=== PATIENT | male | born 2000 | race Caucasian/White ===

== ENCOUNTER 2022-06-24 09:05 | Outpatient (REF) | payer BC, SELFPAY ==
[2022-06-24 12:06] LABS: Appearance Urine Turbid; Color Urine Yellow; Glucose Urine UA Negative (Negative); Leukocyte Esterase Urine Negative (Negative); Nitrite Urine Negative (Negative); PH 5.5 (5.0-9.0); Specific Gravity - Urine 1.025 (1.005-1.025); Urine Blood Negative (Negative); Urine Ketones Trace mg/dL (Negative); Urine Protein Negative (Neg-Trace)
[2022-06-24 13:27] LABS: CT PCR NOT DETECTED (Not Detect.); NG PCR NOT DETECTED (Not Detect.)
[2022-06-24 14:16] LABS: Alanine Aminotransferase 29 U/L (0-40); Albumin Level 4.5 g/dL (3.5-5.0); Alkaline Phosphatase 79 U/L (39-117); Anion Gap 10 (12-20); Aspartate Amino Transferase 26 U/L (5-37); Bilirubin Total 1.1 mg/dL (0.0-1.0); Blood Urea Nitrogen 10 mg/dL (9-16); Calcium 9.6 mg/dL (8.4-10.2); Carbon Dioxide 28 mmol/L (22-29); Chloride 106 mmol/L (96-108); Cholesterol 167 mg/dL; Estimated Glomerular Filt Rate > 60; Glucose Fasting 89 mg/dL (60-99); HDL Cholesterol 44 mg/dL; LDL Cholesterol Calculated 103 mg/dl; Potassium 3.3 mmol/L (3.3-5.1); Sodium 141 mmol/L (135-145); Total Protein 6.9 g/dL (6.5-8.0); Triglycerides 101 mg/dL
[2022-06-25 04:51] LABS: Syphilis Screen Nonreactive (Nonreactive)
[2022-06-25 05:25] LABS: HBS Num1 0.66 mIU/mL (0-7.99); HBc Num1 0.13 S/CO (0.00-0.79); HIV AB/AG Nonreactive (Nonreactive); HIV Num 1 0.07 S/CO (0.00-0.99); Hepatitis B Core Antibody Nonreactive (Nonreactive); Hepatitis B Surface Antigen Negative (Negative); ~HepC Num1 0.13 S/CO (0.00-0.79); ~Hepatitis B Surface Antibody NONREACTIVE (Nonreactive); ~Hepatitis C Antibody Nonreactive (Nonreactive)
== END 2022-06-24 09:06 | disposition home or self-care (01) ==
LOC: HO.WFDLDS 09:05
PROVIDERS: Visit Provider Family Medicine
DX: Z00.00 Encounter for general adult medical examination without abnormal findings (principal); Z11.4 Encounter for screening for human immunodeficiency virus [HIV]; Z11.3 Encounter for screening for infections with a predominantly sexual mode of transmission
CPT/HCPCS: 0353U; 80053; 80061; 81003; 84443; 86704; 86706; 86780; 86803; 87340; 87389

== ENCOUNTER 2023-01-02 14:19 | Outpatient (AMB) | payer BC, SELFPAY ==
[2023-01-02 14:25] VITALS: BP 124/68; PULSE 85; RESP 12; TEMP 37; O2SAT 99; BMI 26.3
--- NOTE | 2023-01-02 14:25 | A.OFFPC_ITS ---
Vital Signs 01/02/23 14:25 Height 5 ft 11 in Weight 188 lb 6 oz BMI 26.3 BP 124/68 Blood Pressure Location Lt brachial Position Sitting Respiration 12 Pulse 85 Pulse Source Pulse Oximeter Temp 98.6 F Temp Source Temporal Artery Scan Pulse Oximetry (%) 99 Oxygen Delivery Method Room Air Intake Visit Reasons: Referral (Hearing Loss/Ringing) Intake Note: Patient states that it happened about a month ago and went away within a week. Patient states that it was the third time that has happened. Patient states that is happening only in the right. Patient states thats the ringing and hearing loss gets longer each time it happens. Patient states that the pain is mild. Vacuum Plastic Forming Machine Operator Required: No Accompanied by: Self / Same As Patient Allergies No Known Allergies Allergy (Verified 01/02/23 14:30) Tobacco use date assessed: 07/10/22 Dental Screening Dental Screen Date: 01/02/23 Did you have a dental visit in the last 12 months?: Yes Did you have a dental problem in the last 6 months where you did not have access to dental care?: No Was dental information given to patient?: Patient has dentist HPI Referral (Hearing Loss/Ringing) HPI Details 22 y/o male presents today with complaints of R ear hearing loss/tinnitus. He reports symptoms x1 month. Symptoms have abated but been recurrent. 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 Keshawn Rangel, Denise Mendes, Bartolome Yoon and colleagues, with an educational thuan from [employer]. Physical exam (Primary Care) Vital Signs: Last Vital Signs Temp 98.6 F 01/02/23 14:25 Pulse 85 01/02/23 14:25 Resp 12 01/02/23 14:25 BP 124/68 01/02/23 14:25 Pulse Ox 99 01/02/23 14:25 Oxygen Delivery Method Room Air 01/02/23 14:25 BMI result Body Mass Index 26.3 Tobacco/Smoking Status: Tobacco use Status Tobacco use date assessed 07/10/22 01/02/23 14:32 Patient Tobacco Use Status Never used Tobacco 01/02/23 14:32 e-Cigarette/Vaping Use Never Used 01/02/23 14:32 Thrive Assessment: Date of Thrive Assessment Date Thrive assessed 06/19/22 01/02/23 14:32 HENMT Other: TMs normal bilaterally Hearing grossly intact bilaterally Assessment and Plan Assessment & Plan (1) Hearing loss: Code(s): H91.90 - Unspecified hearing loss, unspecified ear Plan: Hearing changes and tinnitus. Symptoms have abated but have been recurrent TM appears normal today Referred to audiology Referred to ENT (2) Tinnitus: Code(s): H93.19 - Tinnitus, unspecified ear Plan: As above Orders: Referrals Audiology Referral H91.90 - Unspecified hearing loss, unspecified ear, H93.19 - Tinnitus, unspecified ear Ear/Nose/Throat Referral H91.90 - Unspecified hearing loss, unspecified ear, H93.19 - Tinnitus, unspecified ear Coding Level of Care Code Est Pt Level 3 (58054) Diagnoses Hearing loss H91.90 Tinnitus H93.19
== END 2023-01-02 15:03 | disposition home or self-care (01) ==
PROVIDERS: PCP Family Medicine; Visit Provider Family Medicine
DX: H91.90 Unspecified hearing loss, unspecified ear (principal); H93.19 Tinnitus, unspecified ear
CPT/HCPCS: 99213

== ENCOUNTER 2023-08-24 15:23 | Outpatient (AMB) | payer BC, SELFPAY ==
--- NOTE | 2023-08-24 15:26 | A.OFFPC_ITS ---
Vital Signs 08/24/23 15:28 Height 5 ft 11 in Weight 189 lb BMI 26.4 BP 110/62 Blood Pressure Location Lt brachial Position Sitting Respiration 12 Pulse 90 Pulse Source Pulse Oximeter Pulse Oximetry (%) 99 Oxygen Delivery Method Room Air Intake Visit Reasons: Physical Exam Intake Note: Patient reports he is here for a physical. Patient states he was seen by the eye doctor and he has glasses coming. Patient reports he has an astigmatism and is near sighted. Blocking Machine Operator Required: No Accompanied by: Self / Same As Patient Allergies No Known Allergies Allergy (Verified 08/24/23 15:34) Tobacco use date assessed: 07/10/22 [facility] Medical History Depression with anxiety Surgical History No pertinent past surgical history Family History Mother Depression Father Depression Other Mental health disorder Social History Household Members: Spouse and None Both parents involved: Yes Caregiver staying overnight: No Housing: Apartment Are you a primary director of healthcare systems to a significant other at home: No Do you presently have visiting nurse or other home services: No 75 years or older and lives alone: No Alcohol intake: current Alcohol intake frequency: holidays/special occasions only Alcohol type: beer Patient Tobacco Use Status: Never used Tobacco e-Cigarette/Vaping Use: Never Used Use of substances other than those prescribed or required for medical reasons: No Have you been hit, kicked, punched, or otherwise hurt by someone within the past year? 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 1. Little interest or pleasure in doing things: not at all 2. Feeling down, depressed, or hopeless: not at all 3. Trouble falling or staying asleep, or sleeping too much: not at all 4. Feeling tired or having little energy: not at all 5. Poor appetite or overeating: not at all 6. Feeling bad about yourself - or that you are a failure or have let yourself or your family down: not at all 7. Trouble concentrating on things, such as reading the newspaper or watching television: not at all 8. Moving or speaking so slowly that other people could have noticed. Or the opposite - being so fidgety or restless that you have been moving around a lot more than usual: not at all 9. Thoughts that you would be better off or of hurting yourself in some way: not at all Total score: 0 Depression Screening Interpretation: Negative Depression Screening Done: Yes 10760 - PHQ-9 Billing: Yes Source: Developed by Drs. Keshawn Rangel, Denise Mendes, Bartolome Yoon and colleagues, with an educational thuan from [employer]. Thrive Questionnaire Date Thrive assessed: 08/24/23 I am a: Patient What is your living situation today?: I have a steady place to live Within the past 12 months, did the food you bought not last and you didn't have the money to get more?: Never true Within the past 12 months, did you worry whether your food would run out before you got money to buy more?: Never true Do you have trouble paying for medicines?: No Do you have trouble getting transportation to medical appointments?: No Do you have trouble paying your heating and electricity bill?: No Do you have trouble taking care of your child, family member or friend?: No Do you have trouble with day-to-day activities such as bathing, preparing meals, shopping, managing finances, etc.?: No Are you currently unemployed and looking for a job?: No Are you interested in more education?: No Please select the resources that you would like help with: None Currently or been in a relationship where the following occur: no concerns reported THRIVE Score: 0 AUDIT C Alcohol Use Questionnaire (AUDIT-C) 1. How often do you have a drink containing alcohol?: Monthly or less 2. How many drinks containing alcohol do you have on a typical day when you are drinking?: 1 or 2 Total Score: 1 LENO-7 AMB Questionnaire LENO-7 Date LENO - 7 assessed: 08/24/23 Feeling nervous, anxious, or on edge: 0 = Not at all Not being able to stop or control worryin = Not at all Worrying too much about different things: 0 = Not at all Trouble relaxin = Not at all Being so restless that it is hard to sit still: 0 = Not at all Becoming easily annoyed or irritable: 0 = Not at all Feeling afraid as if something awful might happen: 0 = Not at all Total LENO-7 score (0-4 normal; 5-9 mild; 10-14 moderate; 15-21 severe): 0 Source: Developed by Drs. Keshawn Rangel, Denise Mendes, Bartolome Yoon and colleagues, with an educational thuan from [employer]. LENO-7 Assessment Billing LENO-7 Assessment Tool: LENO-7 Assessment 09207 Review of Systems Const Denies chills, Denies fatigue, Denies fever(s), Denies headache(s) and Denies weakness Eyes Denies change in vision ENT Denies dizziness, Denies headache(s), Denies hearing loss, Denies nasal congestion, Denies sinus pain, Denies sinus pressure and Denies sore throat Card Denies chest pain, Denies lightheadedness, Denies dyspnea and Denies other (palpitations) Resp Denies cough, Denies dyspnea and Denies wheezing GI Denies abdominal pain, Denies melena, Denies hematochezia, Denies change in bowel habits, Denies dyspepsia and Denies nausea Denies hematuria and Denies dysuria Musc Denies abnormal gait, Denies myalgias, Denies arthralgias, Denies numbness and Denies tingling Skin/Breast Denies rash, Denies unusual bruising and Denies wounds Neuro Denies abnormal gait, Denies dizziness, Denies headache(s), Denies memory loss, Denies numbness, Denies Sensory deficit (Neuro), Denies tingling and Denies weakness Psych Denies anxiety, Denies depression and Denies memory loss Endo Denies cold intolerance, Denies fatigue, Denies heat intolerance, Denies polydipsia and Denies polyuria Edin/Lymph Denies easy bleeding and Denies easy bruising Aller/Immun Denies wheezing Physical exam (Primary Care) Vital Signs: Last Vital Signs Pulse 90 08/24/23 15:28 Resp 12 08/24/23 15:28 BP 110/62 08/24/23 15:28 Pulse Ox 99 08/24/23 15:28 Oxygen Delivery Method Room Air 08/24/23 15:28 BMI result Body Mass Index 26.4 Tobacco/Smoking Status: Tobacco use Status Tobacco use date assessed 07/10/22 08/24/23 15:26 Patient Tobacco Use Status Never used Tobacco 08/24/23 15:36 e-Cigarette/Vaping Use Never Used 08/24/23 15:36 PHQ-9: PHQ-9 Score PHQ-9: Total score 0 08/24/23 16:09 Depression Screening Interpretation: Negative Thrive Assessment: Date of Thrive Assessment Date Thrive assessed 08/24/23 08/24/23 15:37 Currently or been in a relationship where the following occur: no concerns repo rted Const General: no acute distress, well developed, alert and awake Nutritional Appearance: well nourished Orientation/consciousness: patient oriented x3 HENMT Head: Yes normocephalic and Yes atraumatic Ears: hearing grossly normal bilaterally and TM's normal bilaterally General nose exam: Normal external nose present and Normal nares present Mouth: Normal oral and palatal mucosa present and moist mucous membranes Teeth and gingiva: dentition normal Throat: Yes posterior oropharynx normal Eyes General: appearance normal, both eyes and all related structures Pupils: Equal, round and reactive pupils present and Pupil accommodation reflex normal EOM: EOMs intact bilaterally Neck Neck: Yes normal visual inspection, Yes no lymphadenopathy and Yes trachea midline Thyroid: Thyroid normal Carotids: no bruits Lymphatic: no lymphadenopathy noted Chest Chest palpation & inspection: normal inspection of the chest Resp Effort & Inspection: normal respiratory effort Auscultation: clear to auscultation bilaterally Cardio Rate: regular rate Rhythm: regular rhythm Heart sounds: S1 normal heart sound present, S2 normal heart sound present, no gallops, no murmurs and no rubs Bruits: no abdominal aortic bruits and no carotid bruits GI Palpation (GI): No Abdominal aortic bruit present, Soft to palpation, nontender, No hepatosplenomegaly present and No Rebound tenderness present Auscultation: normal bowel sounds General: Yes no CVA tenderness Back/Spine/Pelvis Back: no CVA tenderness Cervical Spine: cervical ROM normal and No Cervical spine tenderness Thoracic/Lumbar Spine: thoraco-lumbar ROM normal, No pain with thoraco-lumbar ROM, No thoracic spinal tenderness and No lumbar spinal tenderness Skin Lesions: no lesions Rashes: no rashes Trauma: no lacerations or abrasions Wounds: no wounds Nails: normal Neuro General: patient oriented x3 Cranial nerves: Yes Equal, round and reactive pupils present Cognition (Neuro): normal cognition Gait exam (Neuro): Normal gait present Motor exam (neuro): 5/5 motor strength present throughout Sensory Exam: No Sensory deficit (Neuro) Deep tendon reflexes (DTR's): Right patellar reflex intensity grade: 2+ and Left patellar reflex intensity grade: 2+ Extrem General: Yes normal to inspection and No edema Psych Appearance: grossly normal Affect: normal affect Attitude: cooperative Thought process: Normal thought process present Assessment and Plan Assessment & Plan (1) Adult general medical exam: Code(s): Z00.00 - Encounter for general adult medical examination without abnormal findings Plan: 22-year-old?male?presents?for?complete?physical?exam Encouraged?healthy?diet?with?active?lifestyle?and?plenty?of?exercise Encouraged?good?hydration (2) Hearing loss: Code(s): H91.90 - Unspecified hearing loss, unspecified ear Plan: Audiology?testing?showed?normal?hearing. ENT?recommended?keeping?ear?canals?free?of?cerumen Also?suggested?some?of?his?symptoms?may?be?secondary?to?allergy Follow-up?with?ENT?as?recommended Coding Level of Care Code Est Pt Level 3 (02508) Est Pt Prev Care 18-39y(31654) Diagnoses Adult general medical exam Z00.00 Hearing loss H91.90 Additional Codes LENO-7 Assessment Billing - LENO-7 Assessment Tool: LENO-7 Assessment 51728 ([id number])
[2023-08-24 15:28] VITALS: BP 110/62; PULSE 90; RESP 12; O2SAT 99; BMI 26.4
== END 2023-08-24 16:20 | disposition home or self-care (01) ==
PROVIDERS: Visit Provider Family Medicine
DX: Z00.00 Encounter for general adult medical examination without abnormal findings (principal); H91.93 Unspecified hearing loss, bilateral
CPT/HCPCS: 99395

== ENCOUNTER 2023-08-31 09:46 | Outpatient (REF) | payer BC, SELFPAY ==
[2023-08-31 12:22] LABS: Appearance Urine Clear; Color Urine Yellow; Glucose Urine UA Negative (Negative); Leukocyte Esterase Urine Negative (Negative); Nitrite Urine Negative (Negative); Urine Blood Negative (Negative); Urine Ketones Negative (Negative); Urine Protein Negative (Neg-Trace)
[2023-08-31 13:01] LABS: Alanine Aminotransferase 32 U/L (0-40); Albumin Level 4.3 g/dL (3.5-5.0); Alkaline Phosphatase 75 U/L (39-117); Anion Gap 13 (12-20); Aspartate Amino Transferase 28 U/L (5-37); Bilirubin Total 0.5 mg/dL (0.0-1.0); Blood Urea Nitrogen 11 mg/dL (9-16); Calcium 9.7 mg/dL (8.4-10.2); Carbon Dioxide 28 mmol/L (22-29); Chloride 104 mmol/L (96-108); Cholesterol 178 mg/dL (<200); Estimated Glomerular Filt Rate > 60; Glucose Fasting 80 mg/dL (60-99); HDL Cholesterol 50 mg/dL (>40); LDL Cholesterol Calculated 106 mg/dL (<100); Potassium 3.8 mmol/L (3.3-5.1); Sodium 141 mmol/L (135-145); Total Protein 7.3 g/dL (6.5-8.0); Triglycerides 114 mg/dL (<150)
[2023-08-31 13:02] LABS: TSH reflex Free T4 0.94 uIU/mL (0.32-4.0)
== END 2023-08-31 09:47 | disposition home or self-care (01) ==
LOC: HO.WFDLDS 09:46
PROVIDERS: Visit Provider Family Medicine
DX: Z00.00 Encounter for general adult medical examination without abnormal findings (principal); Z13.6 Encounter for screening for cardiovascular disorders
CPT/HCPCS: 36415; 80053; 80061; 81003; 84443

== ENCOUNTER → 2023-11-04 16:57 | Outpatient (AMB) | payer BC, SELFPAY ==
--- NOTE | 2023-11-04 16:51 | A.OFFPC_ITS ---
Intake Visit Reasons: f/u CPE-labs Intake Note: Patient is scheduled for lab review today. Allergies No Known Allergies Allergy (Verified 11/04/23 16:52) Tobacco use date assessed: 11/04/23 Dental Screening Dental Screen Date: 01/02/23 HPI f/u CPE-labs HPI Details 22 y/o male presents to f/u CPE-labs via telemedicine. Labs were drawn 08/31/23. Reviewed labs with pt. Triglycerides 114. TC 178. LDL 106. HDL 50. PFSH Medical History Depression with anxiety Surgical History No pertinent past surgical history Family History Mother Depression Father Depression Other Mental health disorder Social History Household Members: Spouse and None Both parents involved: Yes Caregiver staying overnight: No Housing: Apartment Are you a primary intensive care nurse to a significant other at home: No Do you presently have visiting nurse or other home services: No 75 years or older and lives alone: No Alcohol intake: current Alcohol intake frequency: holidays/special occasions only Alcohol type: beer Patient Tobacco Use Status: Never used Tobacco e-Cigarette/Vaping Use: Never Used service: No Current occupational status: employed 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 Keshawn Rangel, Denise Mendes, Bartolome Yoon and colleagues, with an educational thuan from [employer]. Physical exam (Primary Care) Tobacco/Smoking Status: Tobacco use Status Tobacco use date assessed 11/04/23 11/04/23 16:54 Patient Tobacco Use Status Never used Tobacco 11/04/23 16:54 e-Cigarette/Vaping Use Never Used 11/04/23 16:54 Thrive Assessment: Date of Thrive Assessment Date Thrive assessed 08/24/23 11/04/23 16:54 Telehealth Telehealth Telehealth Platform: Telephone Location of provider rendering services: practice address Location of patient: address on file Patient Identification confirmed using: Name, : Yes Telehealth method: voice only Patient verbally consented to treatment: Yes Patient verbally consented to billing insurance company: Yes Patient informed of any privacy concerns related to visit: Yes Minutes spent on Phone/Video with Pt.: 5 Assessment and Plan Assessment & Plan (1) Hyperlipidemia: Code(s): E78.5 - Hyperlipidemia, unspecified Plan: Mild?hyperlipidemia.??No?indication?for?medicine?at?this?time Encouraged?diet?lower?in?saturated?fats?and?cholesterol.??Encouraged?exercise ?and?weight?loss. Plan Patient?also?requests?STD?STI?testing.??No?symptoms.? Ordered Will?call?patient?if?action?is?required. Orders: Orders Syphilis Screen Today Z.3 - Encounter for screening for infections with a predominantly sexual mode of transmission Microalbumin, Random (w Creat) 8 Months I10 - Essential (primary) hypertension UA and rflx microscopic 8 Months Z00.00 - Encounter for general adult medical examination without abnormal findings CT NG by PCR Today Z.3 - Encounter for screening for infections with a predominantly sexual mode of transmission HIV Ab/Ag Today Z.3 - Encounter for screening for infections with a predominantly sexual mode of transmission Hepatitis B,C Profile Today Z11.3 - Encounter for screening for infections with a predominantly sexual mode of transmission Comprehensive [place]. Panel Fast 8 Months Z00.00 - Encounter for general adult medical examination without abnormal findings Lipid Panel 8 Months Z00.00 - Encounter for general adult medical examination without abnormal findings TSH reflex Free T4 8 Months Z00.00 - Encounter for general adult medical examination without abnormal findings CT NG by PCR 8 Months Z.3 - Encounter for screening for infections with a predominantly sexual mode of transmission HIV Ab/Ag 8 Months Z.3 - Encounter for screening for infections with a predominantly sexual mode of transmission Hepatitis B,C Profile 8 Months Z.3 - Encounter for screening for infections with a predominantly sexual mode of transmission Syphilis Screen 8 Months Z.3 - Encounter for screening for infections with a predominantly sexual mode of transmission Coding Level of Care Code Tele Est Pt Level 2 (92165) Diagnoses Hyperlipidemia E78.5
== END ==
PROVIDERS: PCP Family Medicine; Visit Provider Family Medicine
DX: E78.5 Hyperlipidemia, unspecified (principal)
CPT/HCPCS: 99441

== ENCOUNTER 2023-11-16 09:38 | Outpatient (REF) | payer BC, SELFPAY ==
[2023-11-16 12:32] LABS: HBsAGNum1 0.27 S/CO (0.00-0.99); HIV AB/AG Nonreactive (Nonreactive); HIV Num 1 0.07 S/CO (0.00-0.99); Hepatitis B Core Antibody Nonreactive (Nonreactive); Hepatitis B Surface Antigen Negative (Negative); Syphilis Screen Nonreactive (Nonreactive); ~HepC Num1 0.13 S/CO (0.00-0.79); ~Hepatitis B Surface Antibody NONREACTIVE (Nonreactive); ~Hepatitis C Antibody Nonreactive (Nonreactive)
== END 2023-11-16 09:39 | disposition home or self-care (01) ==
LOC: HO.WFDLDS 09:38
PROVIDERS: Visit Provider Family Medicine
DX: Z11.3 Encounter for screening for infections with a predominantly sexual mode of transmission (principal)
CPT/HCPCS: 36415; 86704; 86706; 86780; 86803; 87340; 87389

== ENCOUNTER 2023-12-31 07:24 | Outpatient (REF) | payer BC, SELFPAY ==
[2023-12-31 12:18] LABS: CT PCR NOT DETECTED (Not Detect.); NG PCR NOT DETECTED (Not Detect.)
== END 2023-12-31 07:25 | disposition home or self-care (01) ==
LOC: HO.HMGCLDS 07:24
PROVIDERS: PCP Family Medicine; Visit Provider Family Medicine
DX: Z11.3 Encounter for screening for infections with a predominantly sexual mode of transmission (principal)
CPT/HCPCS: 87491; 87591

== ENCOUNTER 2024-08-08 07:35 | Outpatient (REF) | payer BC, SELFPAY ==
--- OUTSIDE RECORDS SUMMARY | 2024-08-08 07:38 | XMS_ITS | Encounter Summary ---
Author Organization [facility] Address [address] [place] [address] Care Team Providers Care Trimming Assembler Name Role Phone Rod Knowles MD Primary Care Provider Unavailab le Encounter Details Date Type Department Care Team Description 05/08/2015 Equity Director Report Medical Records [address] [place] [address] Mellisa Bains Social History Tobacco Use Types Packs/Day Years Used Date Smoking Tobacco: Never Alcohol Use Standard Drinks/Week Comments Not Asked 0 (1 standard drink = 0.6 oz pur e alcohol) Sex Assigned at Date Recorded Male 01/26/2022 8:37 AM E DT documented as of this encounter Plan of Treatment Not on file documented as of this encounter Visit Diagnoses Not on filedocumented in this encounter Care Teams Trimming Assembler Relationship Specialty Start Date End Date Rod Knowles MD PCP - General Pediatrics 11/22/14 documented as of this encounter
--- OUTSIDE RECORDS SUMMARY | 2024-08-08 07:38 | XMS_ITS | Encounter Summary ---
Author Organization [facility] Address [address] [place] [address] Care Team Providers Care Orange Peel Operator Name Role Phone Rod Knowles MD Primary Care Provider Unavailab le Encounter Details Date Type Department Care Team Description 11/14/2015 Assistant Merchandiser Report Medical Records [address] [place] [id number] Ana Luisa Lozano NP Social History Tobacco Use Types Packs/Day Years [...] on filedocumented in this encounter Care Teams Orange Peel Operator Relationship Specialty Start Date End Date Rod Knowles MD PCP - General Pediatrics 11/22/14 documented as of this encounter
--- OUTSIDE RECORDS SUMMARY | 2024-08-08 07:38 | XMS_ITS | Encounter Summary ---
Author Organization [facility] Address [address] [place] [address] Care Team Providers Care Hand Scraper Name Role Phone Rod Knowles MD Primary Care Provider Unavailab le Reason for Visit * Reason Comments E-prescribe Rx Request Encounter Details Date Type Department Care Team Description 12/31/2017 Refill Pediatrics - [address] [address] Rod Knowles MD E-prescribe Rx Request Social History Tobacco Use Types Packs/Day Years Used Date Smoking Tobacco: Never Alcohol Use Standard Drinks/Week Comments Not Asked 0 (1 standard drink = 0.6 oz pur e alcohol) Sex Assigned at Date Recorded Male 01/26/2022 8:37 AM E DT documented as of this encounter Miscellaneous Notes * Telephone Encounter - Kesha Moreland L.P.N. - 12/31/2017 2:22 PM EDT No more refills needs a f/u appointment.Left message on answering machine To return call when available [phone] * Telephone Encounter - Agueda Mares - 12/31/2017 1:40 PM EDT When was patients last PE/WCC? Last wcc 04/15/16 When is patients next PE/WCC scheduled? Missed wcc appt 12/08/16, 05/18/17, 05/25/17;left message 12/31/17 to book wcc Rod Knowles RX REQUEST WHEN MED IS ON THE LIST: All of the medications requested were on the CURRENT MEDS list Did you check the Pharmacy information above?: YES Indicate how soon the patient needs the script: BY THE END OF THE DAY Patient would like script to be: E-PRESCRIBED/FAXED TO PHARMACY Is the doctor here today?: NO Can the message wait until the doctor returns?: NO Has the patient been told that the prescription will not be filled until the end of the day? NO Rod Knowles Payor: [employer] / Plan: PPO $0 [id number] / Product Type: PPO [id number] documented in this encounter Plan of Treatment Not on file documented as of this encounter Visit Diagnoses Not on filedocumented in this encounter Care Teams Hand Scraper Relationship Specialty Start Date End Date Rod Knowles MD PCP - General Pediatrics 11/22/14 documented as of this encounter
--- OUTSIDE RECORDS SUMMARY | 2024-08-08 07:38 | XMS_ITS | Encounter Summary ---
Author Organization [facility] Address [address] [place] [address] Care Team Providers Care Cell Support Operator Name Role Phone Rod Knowles MD Primary Care Provider Unavailab le Reason for Visit * Reason Comments E-prescribe Rx Request Encounter Details Date Type Department Care Team Description 11/26/2017 Refill Pediatrics - [address] [address] Rod Knowles MD E-prescribe Rx Request Social History Tobacco Use Types Packs/Day Years Used Date Smoking Tobacco: Never Alcohol Use Standard Drinks/Week Comments Not Asked 0 (1 standard drink = 0.6 oz pur e alcohol) Sex Assigned at Date Recorded Male 01/26/2022 8:37 AM E DT documented as of this encounter Miscellaneous Notes * Telephone Encounter - Rod Knowles MD - 11/26/2017 1:23 PM EDT No refills. Please let pt know that he needs to make appt to followup for GERD. No more refills tilfollowup. Is also overdue for WCC * Telephone Encounter - Rebecca Jerry - 11/26/2017 12:42 PM EDT When was patients last PE/WCC? 04/15/2016 When is patients next PE/WCC scheduled? Rod Knowles RX REQUEST WHEN MED IS ON THE LIST: All of the medications requested were on the CURRENT MEDS list Did you check the Pharmacy information above?: YES Indicate how soon the patient needs the script: BY THE END OF THE DAY Patient would like script to be: E-PRESCRIBED/FAXED TO PHARMACY Is the doctor here today?: YES Can the message wait until the doctor returns?: n/a Has the patient been told that the prescription will not be filled until the end of the day? YES Rod Knowles Payor: [employer] / Plan: PPO $0 [id number] / Product Type: PPO [id number] documented in this encounter Plan of Treatment Not on file documented as of this encounter Visit Diagnoses Not on filedocumented in this encounter Care Teams Cell Support Operator Relationship Specialty Start Date End Date Rod Knowles MD PCP - General Pediatrics 11/22/14 documented as of this encounter
--- OUTSIDE RECORDS SUMMARY | 2024-08-08 07:38 | XMS_ITS | Encounter Summary ---
Author Organization [facility] Address [address] [place] [address] Care Team Providers Care Petroleum Analyst Name Role Phone Rod Knowles MD Primary Care Provider Unavailab le Reason for Visit * Reason Comments Encounter Details Date Type Department Care Team Description 04/12/2015 Telephone Pediatrics - [address] [address] Rod Knowles MD Social History Tobacco Use Types Packs/Day Years Used Date Smoking Tobacco: Never Alcohol Use Standard Drinks/Week Comments Not Asked 0 (1 standard drink = 0.6 oz pur e alcohol) Sex Assigned at Date Recorded Male 01/26/2022 8:37 AM E DT documented as of this encounter Miscellaneous Notes * Telephone Encounter - Rod Knowles MD - 04/12/2015 9:50 AM EST Left message for family re: normal labs. Will discusse further at revisit or can make referal now to GI if family wishes. documented in this encounter Plan of Treatment Not on file documented as of this encounter Visit Diagnoses Not on filedocumented in this encounter Care Teams Petroleum Analyst Relationship Specialty Start Date End Date Rod Knowles MD PCP - General Pediatrics 11/22/14 documented as of this encounter
--- OUTSIDE RECORDS SUMMARY | 2024-08-08 07:38 | XMS_ITS | Clinical Summary ---
Author Organization [facility] Address [address] [place] [address] Care Team Providers Care Environmental Aid Name Role Phone Unavailable Primary Care Provider Unavailabl e Source Comments PLEASE NOTE, if this patient is a minor, it may be UNLAWFUL to discuss sensitive information that is contained in these records (such as FAMILY PLANNING, MENTAL HEALTH or SUBSTANCE ABUSE) with the minor patient's parent or other person without the patient's specific authorization.[facility] Allergies No known active allergies Active Problems Problem Noted Date Diagnosed Date Depressive disorder 05/15/2017 Overview (08/01/2020): Overview Note: PHQ 9 -= 9 in 2017 Alex 7 = 0 PHQ 9 = 0 in 2018 ALEX 7 - 8 attributes to stress of managing scholol and athletics Gastroesophageal reflux disease 05/15/2017 Immunizations Name Administration Dates Next Due Flu, Cell Culture based, Pre servative Free, 6m+, Flucelvax 07/20/2019 HEP B, PED/ADOL 1998 Hep B, Adult/Adol (ENERGIX/RECOMBIVAX) 0,01/23/2000 MENINGOCOCCAL ACWY, UNSPECIFIED 04/15/2016 MENINGOCOCCAL MCV4P (MENACTRA) 12/11/2009 MMR (MMR II/Priorix) 01/23/2003,03/16/2000 PNEUMOCOCCAL POLYSACCHARIDE PPV23 06/17/2000,03/2000 TDAP 07/20/2019,12/11/2009 Varicella, Live Vaccine 12/11/2009,01/13/2000 Family History Medical History Relation Name Comments Depression Father Breast cancer Paternal Aunt Coronary Artery Disease Paternal Grandfather Hypertension Paternal Grandfather Diabetes Neg Relation Name Status Comments Father Paternal Aunt Paternal Grandfather Social History Tobacco Use Types Packs/Day Years Used Date Smoking Tobacco: Never Smokeless Tobacco: Never Social Connections Answer Date Recorded Social Connections and Isolation 0 08/01/2020 Financial Resource Strain Answer Date R ecorded Financial Resource Strain 0 2020 Stress Answer Date Recorded Stress 0 08/01/2020 Physical Activity Answer Date Recorded Physical Activity 0 08/01/2020 Food Insecurity Answer Date Recorded Food 0 08/01/2020 Transportation Needs Answer Date Record ed Transportation 0 08/01/2020 Housing Stability Answer Date Recorded Housing 0 08/01/2020 Safety and Environment Answer Date Foster rded Safety 0 08/01/2020 Utilities Answer Date Recorded Utilities 0 08/01/2020 Employment Answer Date Recorded Employment 0 08/01/2020 Sex and Gender Information Value Date Recorded Sex Assigned at Male 12/14/2020 7:47 AM PDT Legal Sex Male 11:22 PM PST Gender Identity Male 08/10/2020 12:48 AM PST Sexual Orientation Straight 08/10/2020 12 :48 AM PST Last Filed Vital Signs Vital Sign Reading Time Taken Comments Blood Pressure 133/80 12/14/2020 10:45 AM EDT Pulse 83 12/14/2020 10:45 AM EDT Temperature 36.5 ??C (97.7 ??F) 12/14/2020 10:45 AM E DT Respiratory Rate 17 07/20/2019 10:31 AM EST Oxygen Saturation 97% 07/20/2019 10:31 AM EST Inhaled Oxygen Concentration - - Weight 84.1 kg (185 lb 6.4 oz) 07/20/2019 10:31 AM EST Height 177.8 cm (5' 10 ) 07/20/2019 10:31 AM EST Body Mass Index 26.6 07/20/2019 10:31 AM EST Plan of Treatment Not on file Insurance [employer]
--- OUTSIDE RECORDS SUMMARY | 2024-08-08 07:38 | XMS_ITS | Encounter Summary ---
Author Organization [facility] Address [address] [place] [address] Care Team Providers Care Performance Tester Name Role Phone Rod Knowles MD Primary Care Provider Unavail le Encounter Details Date Type Department Care Team Description 10/30/2015 Nuclear Fuels Reclamation Engineer Report Medical Records [address] [place] [address] [place], [address] [id number] Social History Tobacco Use Types Packs/Day Years [...] on filedocumented in this encounter Care Teams Performance Tester Relationship Specialty Start Date End Date Rod Knowles MD PCP - General Pediatrics 11/22/14 documented as of this encounter
--- OUTSIDE RECORDS SUMMARY | 2024-08-08 07:38 | XMS_ITS | Encounter Summary ---
Author Organization [facility] Address [address] [place] [address] Care Team Providers Care Lathe Turner Name Role Phone Rod Knowles MD Primary Care Provider Unavailab le Encounter Details Date Type Department Care Team Description 08/05/2018 Release of Information Medical Records [address] [place] [id number] Abstract, Provider Social History Tobacco Use Types Packs/Day Years [...] on filedocumented in this encounter Care Teams Lathe Turner Relationship Specialty Start Date End Date Rod Knowles MD PCP - General Pediatrics 11/22/14 documented as of this encounter
--- OUTSIDE RECORDS SUMMARY | 2024-08-08 07:38 | XMS_ITS | Encounter Summary ---
Author Organization [facility] Address [address] [place] [address] Care Team Providers Care Diesel Mechanic Apprentice Name Role Phone Rod Knowles MD Primary Care Provider Unavailab le Reason for Visit * Reason Comments E-prescribe Rx Request Encounter Details Date Type Department Care Team Description 09/16/2017 Refill Pediatrics - [address] [address] Velia Billings MD [address] [place] [phone] E-prescribe Rx Request Social History Tobacco Use Types Packs/Day Years Used Date Smoking Tobacco: Never Alcohol Use Standard Drinks/Week Comments Not Asked 0 (1 standard drink = 0.6 oz pur e alcohol) Sex Assigned at Date Recorded Male 01/26/2022 8:37 AM E DT documented as of this encounter Miscellaneous Notes * Telephone Encounter - Rod Knowles MD - 09/16/2017 1:56 PM EDT Please have patient schedule appt in next month. I have written for 1 mos without refills. We need to reassess his abdominal complaints before continuing with this medication. * Telephone Encounter - Val Hart L.P.N. - 09/16/2017 9:31 AM EDT Can you refill for Dr Mcgrath? * Telephone Encounter - Agueda Mares - 09/16/2017 9:18 AM EDT When was patients last PE/WCC? 04/15/16 When is patients next PE/WCC scheduled? Check up canceled 05/18/17 and 05/25/17 and not rescheduled Rod Knowles RX REQUEST WHEN MED IS [...] Payor: KEVEN / Plan: PPO $[id number] / Product Type: PPO [id number] documented in this encounter Plan of Treatment Not on file documented as of this encounter Visit Diagnoses Not on filedocumented in this encounter Care Teams Diesel Mechanic Apprentice Relationship Specialty Start Date End Date Rod Knowles MD PCP - General Pediatrics 11/22/14 documented as of this encounter
--- OUTSIDE RECORDS SUMMARY | 2024-08-08 07:38 | XMS_ITS | Encounter Summary ---
Author Organization [facility] Address [address] [address] Care Team Providers Care Oil Transport Driver Name Role Phone Giana Mays [facility] Primary Care Provider + Reason for Visit * Reason Comments Office Visit: Converted Data Conversion Encounter Details Date Type Department Care Team (Late st Contact Info) Description 06/29/2019 Dental Interim Note [facility] Dental [address] [place] [phone] [facility] [place] Social History Tobacco Use Types Packs/Day Years Used Date Smoking Tobacco: Never Assessed Sex and Gender Information Value Date Recorded Sex Assigned at Male 12/14/2020 7:47 AM PDT Legal Sex Male 11:22 PM PST Gender Identity Male 08/10/2020 12:48 AM PST Sexual Orientation Straight 08/10/2020 12 :48 AM PST documented as of this encounter Plan of Treatment Not on file documented as of this encounter Visit Diagnoses Not on filedocumented in this encounter Additional Health Concerns Assessment Noted Time PHQ-9 Depression Total Score: 4 07/14/19 19 3:00 AM PST documented as of this encounter Care Teams Oil Transport Driver Relationship Specialty Start Date End Date Giana Mays FNP-BC [address] [place] [phone] PCP - General 12/29/21 10/12/23 documented as of this encounter
--- OUTSIDE RECORDS SUMMARY | 2024-08-08 07:38 | XMS_ITS | Encounter Summary ---
Author Organization [facility] Address [address] [place] [address] Care Team Providers Care Circus Rider Name Role Phone Giana Mays [facility] Primary Care Provider + Reason for Visit * Reason Comments Office Visit: Converted Data Conversion Encounter Details Date Type Department Care Team (Late st Contact Info) Description 08/14/2020 Dental Interim Note [facility] Dental [address] [place] [address], [address] [place] [phone] Default, [facility] Provider [place] Social History Tobacco Use Types Packs/Day Years Used Date Smoking Tobacco: Never Assessed Social Connections Answer Date Recorded Social Connections [...] on file documented as of this encounter Procedures Procedure Name Priority Date/Time Associated Diagnosis Comments TREATMENT PLAN COMPLETION PHASE 1 Routine 06/29/2019 3:00 AM EST UNSPECIFIED PERIODONTAL PROCEDURE BY REPORT Routine 06/29/2019 3:00 AM EST PROPHYLAXIS - ADULT Routine 06/29/2019 3 :00 AM EST 18 O RESIN-BASED COMPOSITE - ONE SURFACE POSTERIOR Routine 06/09/2019 3:00 AM EST 14 O SEALANT - PER TOOTH Routine 020 3:00 AM EST 2 O SEALANT - PER TOOTH Routine 06/09/19 20 3:00 AM EST INTRAORAL - COMP SERIES OF RADIOGRAPHIC IMAGES Routine 06/09/2019 3:00 AM EST COMP ORAL EVALUATION - NEW/ESTABLISHED PATIENT Routine 06/09/2019 3:00 AM EST documented in this encounter Visit Diagnoses Not on filedocumented in this encounter Additional Health Concerns Assessment Noted Time PHQ-9 Depression Total Score: 6 07/20/19 20 3:00 AM PST documented as of this encounter Care Teams Circus Rider Relationship Specialty Start Date End Date Giana Mays FNP-BC [address] [place] [phone] PCP - General 12/29/21 10/12/23 documented as of this encounter
--- OUTSIDE RECORDS SUMMARY | 2024-08-08 07:38 | XMS_ITS | Encounter Summary ---
Author Organization [facility] Address [address] [place] [address] Care Team Providers Care Immigration Investigator Name Role Phone Jo Ann Fall MD Primary Care Provider Unavaila Velia Pascal MD Primary Care Prov ider Daniela Posey MD Primary Care Provider Rod Krishnamurthy MD Primary Care Provider Emma muhammad Encounter Details Date Type Department Care Team Description 12/30/2010 Zyglo Technician Report Medical Records [address] [place], [place] [phone] [place] [address] Children' Social History Tobacco Use Types Packs/Day Years [...] on filedocumented in this encounter Care Teams Immigration Investigator Relationship Specialty Start Date End Date Jo Ann Fall MD PCP - General 12/16/99 06/09/12 Velia Billings MD [address] [place] [phone] PCP - General Pediatrics 06/10/12 04/02/14 Daniela Posey MD [address] [place] [address] PCP - General Pediatrics 04/03/14 11/21/14 Rod Knowles MD [address] [place] [address] PCP - General Pediatrics 11/22/14 documented as of this encounter
[2024-08-08 11:06] LABS: Appearance Urine Clear; Color Urine Yellow; Glucose Urine UA Negative (Negative); Leukocyte Esterase Urine Negative (Negative); Nitrite Urine Negative (Negative); Specific Gravity - Urine 1.015 (1.005-1.025); Urine Blood Negative (Negative); Urine Ketones Negative (Negative); Urine Protein Negative (Neg-Trace)
[2024-08-08 11:09] LABS: Alanine Aminotransferase 48 U/L (0-40); Albumin Level 4.2 g/dL (3.5-5.0); Alkaline Phosphatase 90 U/L (39-117); Anion Gap 13 (12-20); Aspartate Amino Transferase 67 U/L (5-37); Bilirubin Total 0.6 mg/dL (0.0-1.0); Blood Urea Nitrogen 9 mg/dL (9-16); Calcium 9.3 mg/dL (8.4-10.2); Carbon Dioxide 25 mmol/L (22-29); Chloride 109 mmol/L (96-108); Cholesterol 172 mg/dL (<200); Estimated Glomerular Filt Rate > 60; Glucose Fasting 84 mg/dL (60-99); HDL Cholesterol 55 mg/dL (>40); LDL Cholesterol Calculated 101 mg/dL (<100); Potassium 3.9 mmol/L (3.3-5.1); Sodium 143 mmol/L (135-145); Total Protein 7.2 g/dL (6.5-8.0); Triglycerides 83 mg/dL (<150)
[2024-08-08 11:14] LABS: TSH reflex Free T4 1.09 uIU/mL (0.32-4.0)
[2024-08-08 11:25] LABS: HBS Num1 0.87 mIU/mL (0-7.99); HBc Num1 0.13 S/CO (0.00-0.79); HBsAGNum1 0.35 S/CO (0.00-0.99); HIV AB/AG Nonreactive (Nonreactive); HIV Num 1 0.07 S/CO (0.00-0.99); Hepatitis B Core Antibody Nonreactive (Nonreactive); Hepatitis B Surface Antigen Negative (Negative); ~HepC Num1 0.19 S/CO (0.00-0.79); ~Hepatitis B Surface Antibody NONREACTIVE (Nonreactive); ~Hepatitis C Antibody Nonreactive (Nonreactive)
[2024-08-08 11:27] LABS: Syphilis Screen Nonreactive (Nonreactive)
[2024-08-08 12:09] LABS: Creatinine Urine 132.72 mg/dL; Microalbumin Urine < 5.0 mg/L
== END 2024-08-08 07:36 | disposition home or self-care (01) ==
LOC: HO.HMGCLDS 07:35
PROVIDERS: PCP Family Medicine; Visit Provider Family Medicine
DX: Z00.00 Encounter for general adult medical examination without abnormal findings (principal); Z11.3 Encounter for screening for infections with a predominantly sexual mode of transmission; I10 Essential (primary) hypertension
CPT/HCPCS: 36415; 80053; 80061; 81003; 82043; 82570; 84443; 86704; 86706; 86780; 86803; 87340; 87389

== ENCOUNTER 2024-08-24 15:57 | Outpatient (AMB) | payer BC, SELFPAY ==
--- NOTE | 2024-08-24 16:00 | A.OFFPC_ITS ---
Vital Signs 08/24/24 16:03 Height 5 ft 11 in Weight 179 lb 8 oz BMI 25.0 BP 110/70 Blood Pressure Location Rt brachial Position Sitting Respiration 12 Pulse 86 Pulse Source Pulse Oximeter Temp 99.4 F Temp Source Oral Pulse Oximetry (%) 96 Oxygen Delivery Method Room Air Intake Visit Reasons: Physical Exam Intake Note: patient is schedule for a physical exam Transmission Mechanic Required: No Allergies No Known Allergies Allergy (Verified 08/24/24 16:02) Tobacco use date assessed: 08/24/24 Dental Screening Dental Screen Date: 01/02/23 Did you have a dental visit in the last 12 months?: Yes Did you have a dental problem in the last 6 months where you did not have access to dental care?: No Was dental information given to patient?: No HPI Physical Exam HPI Details 23 y/o male presents for a CPE with f/u labs and health maintenance. Labs drawn 08/08/24. Reviewed labs with pt. Elevated liver enzymes - AST 67, ALT 48. He denies EtOH/excessive tylenol use. Triglycerides 83. TC 172. LDL 101. HDL 55. HPI Comments History of Present Illness Details Documentation assistance for Gato Castaneda MD, was provided by Lisandro Brink,? Splitter Tender on 08/24/2024 at 4:12 PM EST. I, Dr. Castaneda, have read, observed, and verified documentation. ?? PFSH Medical History Depression with anxiety Surgical History No pertinent past surgical history Family History Mother Depression Father Depression Other Mental health disorder Social History Household Members: Spouse and None Both parents involved: Yes Caregiver staying overnight: No Housing: Apartment Are you a primary district manager primary care sales to a significant other at home: No Do you presently have visiting nurse or other home services: No 75 years or older and lives alone: No Alcohol intake: current Alcohol intake frequency: holidays/special occasions only Alcohol type: beer Patient Tobacco Use Status: Never used Tobacco e-Cigarette/Vaping Use: Never Used service: No Current occupational status: employed 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 1. Little interest or pleasure in doing things: not at all 2. Feeling down, depressed, or hopeless: not at all 3. Trouble falling or staying asleep, or sleeping too much: not at all 4. Feeling tired or having little energy: not at all 5. Poor appetite or overeating: not at all 6. Feeling bad about yourself - or that you are a failure or have let yourself or your family down: not at all 7. Trouble concentrating on things, such as reading the newspaper or watching television: not at all 8. Moving or speaking so slowly that other people could have noticed. Or the opposite - being so fidgety or restless that you have been moving around a lot more than usual: not at all 9. Thoughts that you would be better off or of hurting yourself in some way: not at all Total score: 0 Depression Screening Interpretation: Negative Depression Screening Done: Yes [address]707 - PHQ-9 Billing: Yes Source: Developed by Drs. Keshawn Rangel, Denise Mendes, Bartolome Yoon and colleagues, with an educational thuan from [employer]. Thrive Questionnaire Date Thrive assessed: 08/24/24 I am a: Patient What is your living situation today?: I have a steady place to live Within the past 12 months, did the food you bought not last and you didn't have the money to get more?: Never true Within the past 12 months, did you worry whether your food would run out before you got money to buy more?: Never true Do you have trouble paying for medicines?: No Do you have trouble getting transportation to medical appointments?: No Do you have trouble paying your heating and electricity bill?: No Do you have trouble taking care of your child, family member or friend?: No Do you have trouble with day-to-day activities such as bathing, preparing meals, shopping, managing finances, etc.?: No Are you currently unemployed and looking for a job?: No Are you interested in more education?: No Please select the resources that you would like help with: None Currently or been in a relationship where the following occur: No concerns reported THRIVE Score: 0 AUDIT C Alcohol Use Questionnaire (AUDIT-C) 1. How often do you have a drink containing alcohol?: 2-4 times a month 2. How many drinks containing alcohol do you have on a typical day when you are drinking?: 1 or 2 3. How often do you have six or more drinks on one occasion?: Never Total Score: 2 Score Reviewed/Action Taken: Yes LENO-7 AMB Questionnaire LENO-7 Date LENO - 7 assessed: 08/24/24 Feeling nervous, anxious, or on edge: 0 = Not at all Not being able to stop or control worryin = Not at all Worrying too much about different things: 0 = Not at all Trouble relaxin = Not at all Being so restless that it is hard to sit still: 0 = Not at all Becoming easily annoyed or irritable: 1 = Several days Feeling afraid as if something awful might happen: 0 = Not at all Total LENO-7 score (0-4 normal; 5-9 mild; 10-14 moderate; 15-21 severe): 1 Source: Developed by Drs. Keshawn Rangel, Denise Mendse, Bartolome Yoon and colleagues, with an educational thuan from [employer]. LENO-7 Assessment Billing LENO-7 Assessment Tool: LENO-7 Assessment 39201 Review of Systems Const Denies chills, Denies fatigue, Denies fever(s), Denies headache(s) and Denies weakness Eyes Denies change in vision ENT Denies dizziness, Denies headache(s), Denies hearing loss, Denies nasal congestion, Denies sinus pain, Denies sinus pressure and Denies sore throat Card Denies chest pain, Denies lightheadedness, Denies dyspnea and Denies other (palpitations) Resp Denies cough, Denies dyspnea and Denies wheezing GI Denies abdominal pain, Denies melena, Denies hematochezia, Denies change in bowel habits, Denies dyspepsia and Denies nausea Denies hematuria and Denies dysuria Musc Denies abnormal gait, Denies myalgias, Denies arthralgias, Denies numbness and Denies tingling Skin/Breast Denies rash, Denies unusual bruising and Denies wounds Neuro Denies abnormal gait, Denies dizziness, Denies headache(s), Denies memory loss, Denies numbness, Denies Sensory deficit (Neuro), Denies tingling and Denies weakness Psych Denies anxiety, Denies depression and Denies memory loss Endo Denies cold intolerance, Denies fatigue, Denies heat intolerance, Denies polydipsia and Denies polyuria Edin/Lymph Denies easy bleeding and Denies easy bruising Aller/Immun Denies wheezing Physical exam (Primary Care) Vital Signs: Last Vital Signs Temp 99.4 F 08/24/24 16:03 Pulse 86 08/24/24 16:03 Resp 12 08/24/24 16:03 BP 110/70 08/24/24 16:03 Pulse Ox 96 08/24/24 16:03 Oxygen Delivery Method Room Air 08/24/24 16:03 BMI result Body Mass Index 25.0 Tobacco/Smoking Status: Tobacco use Status Tobacco use date assessed 08/24/24 08/24/24 16:06 Patient Tobacco Use Status Never used Tobacco 08/24/24 16:06 e-Cigarette/Vaping Use Never Used 08/24/24 16:06 PHQ-9: PHQ-9 Score PHQ-9: Total score 0 08/24/24 16:12 Depression Screening Interpretation: Negative Thrive Assessment: Date of Thrive Assessment Date Thrive assessed 08/24/24 08/24/24 16:06 Currently or been in a relationship where the following occur: No concerns reported Const General: no acute distress, well developed, alert and awake Nutritional Appearance: well nourished Orientation/consciousness: patient oriented x3 HENMT Head: Yes normocephalic and Yes atraumatic Ears: hearing grossly normal bilaterally and TM's normal bilaterally General nose exam: Normal external nose present and Normal nares present Mouth: Normal oral and palatal mucosa present and moist mucous membranes Teeth and gingiva: dentition normal Throat: Yes posterior oropharynx normal Eyes General: appearance normal, both eyes and all related structures Pupils: Equal, round and reactive pupils present and Pupil accommodation reflex normal EOM: EOMs intact bilaterally Neck Neck: Yes normal visual inspection, Yes no lymphadenopathy and Yes trachea midline Thyroid: Thyroid normal Carotids: no bruits Lymphatic: no lymphadenopathy noted Chest Chest palpation & inspection: normal inspection of the chest Resp Effort & Inspection: normal respiratory effort Auscultation: clear to auscultation bilaterally Cardio Rate: regular rate Rhythm: regular rhythm Heart sounds: S1 normal heart sound present, S2 normal heart sound present, no gallops, no murmurs and no rubs Bruits: no abdominal aortic bruits and no carotid bruits GI Palpation (GI): No Abdominal aortic bruit present, Soft to palpation, nontender, No hepatosplenomegaly present and No Rebound tenderness present Auscultation: normal bowel sounds General: Yes no CVA tenderness Back/Spine/Pelvis Back: no CVA tenderness Cervical Spine: cervical ROM normal and No Cervical spine tenderness Thoracic/Lumbar Spine: thoraco-lumbar ROM normal, No pain with thoraco-lumbar ROM, No thoracic spinal tenderness and No lumbar spinal tenderness Skin Lesions: no lesions Rashes: no rashes Trauma: no lacerations or abrasions Wounds: no wounds Nails: normal Neuro General: patient oriented x3 Cranial nerves: Yes Equal, round and reactive pupils present Cognition (Neuro): normal cognition Gait exam (Neuro): Normal gait present Motor exam (neuro): 5/5 motor strength present throughout Sensory Exam: No Sensory deficit (Neuro) Deep tendon reflexes (DTR's): Right patellar reflex intensity grade: 2+ and Left patellar reflex intensity grade: 2+ Extrem General: Yes normal to inspection and No edema Psych Appearance: grossly normal Affect: normal affect Attitude: cooperative Thought process: Normal thought process present Coding Level of Care Code Est Pt Level 3 (64361) Est Pt Prev Care 18-39y(74644) Diagnoses Adult general medical exam Z00.00 Hyperlipidemia E78.5 Elevated liver enzymes R74.8 Additional Codes ELNO-7 Assessment Billing - LENO-7 Assessment Tool: LENO-7 Assessment 92227 ([id number]) PHQ-9 - 28094 - PHQ-9 Billing: Yes ([id number]) Assessment & Plan Assessment & Plan (1) Adult general medical exam: Code(s): Z00.00 - Encounter for general adult medical examination without abnormal findings Category: Medical Plan: 23-year-old?male?presents?for?complete?physical?exam Exam?within?limits Encouraged?healthy?diet?with?active?lifestyle?and?plenty?of?exercise (2) Hyperlipidemia: Code(s): E78.5 - Hyperlipidemia, unspecified Category: Medical Plan: Mildly?elevated?LDL?cholesterol.??HDL?ratios?are?good Encouraged?a?diet?low er?in?saturated?fats?and?cholesterol.??No?indication?for?medicine?at?this?time (3) Elevated liver enzymes: Code(s): R74.8 - Abnormal levels of other serum enzymes Category: Medical Plan: Elevated?liver?enzymes Patient?says?he?is?not?drinking?alcoh ol?or?using?Tylenol.??His?weight?is?fairly?well?controlled.??He?says?he?has?been ?working?on?hydration. He?will?work?on?the?above?snore?and?we?will?recheck?his?liver?enzymes?in?about?2 ?months. If?still?elevated,?check?an?ultrasound. Orders: Orders Comprehensive Met. Panel Today R74.8 - Abnormal levels of other serum enzymes
[2024-08-24 16:03] VITALS: BP 110/70; PULSE 86; RESP 12; TEMP 37.4; O2SAT 96; BMI 25.0
== END 2024-08-24 16:22 | disposition home or self-care (01) ==
LOC: HO.HMCFM 15:58
PROVIDERS: PCP Family Medicine; Visit Provider Family Medicine
DX: Z00.00 Encounter for general adult medical examination without abnormal findings (principal); E78.5 Hyperlipidemia, unspecified; R74.8 Abnormal levels of other serum enzymes

== ENCOUNTER → 2024-08-24 15:57 | Outpatient (BNVA) | payer BC, SELFPAY | PROVIDERS: PCP Family Medicine; Visit Provider Family Medicine | DX: Z00.00 Encounter for general adult medical examination without abnormal findings (principal); E78.5 Hyperlipidemia, unspecified; R74.8 Abnormal levels of other serum enzymes | CPT/HCPCS: 96127 ==

== ENCOUNTER 2024-10-17 07:43 | Outpatient (REF) | payer BC, SELFPAY ==
--- OUTSIDE RECORDS SUMMARY | 2024-10-17 07:46 | XMS_ITS | Clinical Summary ---
Author Organization [facility] Address [address] [place] [address] Care Team Providers Care Director Of Field Service Name Role Phone Unavailable Primary Care Provider [...] and athletics Gastroesophageal reflux disease 05/15/2017 Immunizations Immunization Administration Dates Next Due Flu, Cell Culture based, Pre servative Free, 6m+, Flucelvax 07/20/2019 HEP B, PED/ADOL 1998 Hep B, Adult/Adol (ENERGIX/RECOMBIVAX) 0,01/23/2000 MENINGOCOCCAL ACWY, UNSPECIFIED 04/15/2016 MENINGOCOCCAL MCV4P (MENACTRA) 12/11/2009 MMR (MMR II/Priorix) 01/23/2003,03/16/2000 PNEUMOCOCCAL POLYSACCHARIDE PPV23 (Pneumovax 23) 06/17/2000,03/17/2000 TDAP 07/20/2019,12/11/2009 Varicella (Varivax), Live Vaccine 12/11/2009,12/1999 Family History Medical History Relation Name Comments [...]
--- OUTSIDE RECORDS SUMMARY | 2024-10-17 07:47 | XMS_ITS | Encounter Summary ---
Author Organization [facility] Address [address] [address] Care Team Providers Care Revival Clerk Name Role Phone Giana Mays [facility] Primary Care Provider + Reason for Visit * Reason Comments Office Visit: Converted Data Conversion Encounter Details Date Type Department Care Team (Late st Contact Info) Description 06/29/2019 Dental Interim Note [facility] [address] [place] [phone] Default, [facility] [place] Social History Tobacco Use Types Packs/Day Years [...] documented as of this encounter Care Teams Revival Clerk Relationship Specialty Start Date End Date Giana Mays FNP-BC [address] [place] [phone] PCP - General 12/29/21 10/12/23 documented as of this encounter
--- OUTSIDE RECORDS SUMMARY | 2024-10-17 07:47 | XMS_ITS | Encounter Summary ---
Author Organization [facility] Address [address] [place] [address] [place] [id number] Care Team Providers Care Station Supervisor Name Role Phone Giana Mays [facility] Primary Care Provider + Reason for Visit * Reason Comments Office Visit: Converted Data Conversion Encounter Details Date Type Department Care Team (Late st Contact Info) Description 08/14/2020 Dental Interim Note [facility] [address] [place] [address], [address] [place] [phone] Default, [facility] Provider [place] Social History Tobacco Use Types [...] documented as of this encounter Care Teams Station Supervisor Relationship Specialty Start Date End Date Giana Mays FNP-BC [address] [place] [phone] PCP - General 12/29/21 10/12/23 documented as of this encounter
[2024-10-17 10:29] LABS: Alanine Aminotransferase 39 U/L (0-40); Albumin Level 4.4 g/dL (3.5-5.0); Alkaline Phosphatase 76 U/L (39-117); Anion Gap 13 (12-20); Aspartate Amino Transferase 32 U/L (5-37); Bilirubin Total 0.6 mg/dL (0.0-1.0); Blood Urea Nitrogen 13 mg/dL (9-16); Calcium 9.4 mg/dL (8.4-10.2); Carbon Dioxide 26 mmol/L (22-29); Chloride 107 mmol/L (96-108); Estimated Glomerular Filt Rate > 60; Glucose Random 87 mg/dL (60-115); Potassium 3.9 mmol/L (3.3-5.1); Sodium 142 mmol/L (135-145)
== END 2024-10-17 07:44 | disposition home or self-care (01) ==
LOC: HO.HMGCLDS 07:43
PROVIDERS: PCP Family Medicine; Visit Provider Family Medicine
DX: R74.8 Abnormal levels of other serum enzymes (principal)
CPT/HCPCS: 36415; 80053

== ENCOUNTER → 2024-11-02 10:02 | Outpatient (BNVA) | payer BC, SELFPAY | PROVIDERS: PCP Family Medicine; Visit Provider Family Medicine ==